=== PATIENT | male | born 1970 | race Caucasian/White ===

== ENCOUNTER 2025-06-18 09:09 | Outpatient (REF) | payer MEDICAID, SELFPAY ==
--- OUTSIDE RECORDS SUMMARY | 2025-06-18 09:58 | XMS_ITS | Clinical Summary ---
Author Organization [facility] Address [address] [place] [address] Care Team Providers Care Contract Driver Name Role Phone Ricco Saul MD Primary Care Provider [phone] Allergies No known active allergies Medications carbamide peroxide (Debrox) 6.5 % otic solutionIndicat ions:Excessive cerumen in left ear canal Administer 5-10 drops into affected ear(s) 2 times daily for 4 days. 30 mL 06/15/20 25 Active Problems Problem Noted Date Diagnosed Date Seasonal allergies 06/11/2025 Encounters Date Type Department Care Team Description 06/11/2025 2:00 PM EST Office Visit [facility] [address] [place] [address] Ricco Saul MD Seasonal allergies (Primary Dx); Dietary counseling; Exercise counseling; Class 1 obesity due to excess calories without serious comorbidity with body mass index (BMI) of 30.0 to 30.9 in adult; Snoring; Excessive cerumen in left ear canal 06/11/2025 Travel 06/04/2025 Patient Outreach [facility] [address] [place] [address] Anthony Chisholm MD Pre-visit Planning (SDOH screening negative and Tobacco screening negative) 06/04/2025 Travel 05/11/2025 Population Health Risk Score [facility] ([facility]) Department [address] [phone] Provider, Population Health Generic from Last 3 Months Family History Medical History Relation Name Comments Emphysema Father Hypertension Father Skin cancer Father smoker Father Hypothyroidism Mother Stroke Mother Relation Name Status Comments Father Mother Social History Tobacco Use Types Packs/Day Years Used Date Smoking Tobacco: Never Smokeless Tobacco: Never Tobacco Cessation:Counseling Given: Not Answered Depression Answer Date Recorded Patient Health Questionnaire-9 Score 1 06/11/2025 Patient Health Questionnaire-9 Score 1 06/11/2025 Last PHQ-9: Questionnaire Data Not on file 1 08/11/2024 Housing Stability Answer Date Recorded What is your housing situation today? I have leonardo rodriguez 06/04/[address] you li ve. Do you have problems with any of the following? None of the above 06/04/2025 Food Insecurity Answer Date Recorded Within the past 12 months, y ou worried that your food would run out before you got money to buy more: Never True 06/04/2025 Within the past 12 months,th e food you bought just didn't last and you didn't have enough money to get more: Never True Transportation Answer Date Recorded In the past 12 months, has l ack of transportation kept you from medical appts, meetings, work or from getting things needed for daily living? No 06/04/2025 Utilities Answer Date Recorded In the past 12 months, has t he electric, gas, oil or water company threatened to shut off services in your home? No 06/04/2025 Depression Answer Date Recorded Patient Health Questionnaire-2 Score 0 06/11/2025 Internet Access Answer Date Recorded Internet Access Q1 Yes 06/04/2025 Internet Access Q2 Not on file 06/04/2025 Sex and Gender Information Value Date Recorded Sex Assigned at Male 05/15/2025 1:48 PM EDT Legal Sex Male 2:10 AM EDT Gender Identity Male 06/11/2025 1:45 PM EST Sexual Orientation Straight 06/11/2025 1: 45 PM EST Last Filed Vital Signs Vital Sign Reading Time Taken Comments Blood Pressure 133/78 06/11/2025 2:01 PM EST Pulse 84 06/11/2025 2:01 PM EST Temperature - - Respiratory Rate 20 06/11/2025 2:01 PM EST Oxygen Saturation 98% 06/11/2025 2:01 PM EST Inhaled Oxygen Concentration - - Weight 98 kg (216 lb) 06/11/2025 2:01 PM EST Height 179 cm (5' 10.47 ) 06/11/2025 2:01 PM EST Body Mass Index 30.58 06/11/2025 2:01 PM EST Plan of Treatment Health Maintenance Due Date Last Done Comments CT Colonography 1970 Colonoscopy 1970 Colorectal Cancer Screening 1970 FIT DNA/Cologuard 1970 FIT 1970 FOBT 1970 HIV Screening 1970 Lipid Panel 1970 Sigmoidoscopy 1970 Hepatitis C Screening 02/14/1988 DTaP/Tdap/Td Vaccines (1 - Tdap) 1989 Hepatitis B Vaccines (1 of 3 - 19+ 3-dose series) 1989 Zoster Vaccines (1 of 2) 02/14/2020 Influenza Vaccine (#1) 2026 Postp oned from 04/09/2025 (Patient Refused) Disability Screening 06/04/2026 06/04/2025 SDOH Screening 06/04/2026 06/04/2025 Alcohol/Substance Use Screening 06/11/2026 06/11/2025 COVID-19 Vaccine (1 - 2023-2 5 season) 2026 Postponed from 04/09 (Patient Refused) Depression Screening 06/11/2026 06/11/2025, 06/11/2025 Pneumococcal Vaccine: 50+ Years (1 of 1 - PCV) 06/11/2026 Postponed from 03/2020 (Patient Refused) Tobacco Screening 06/11/2026 06/11/2025 RSV Patients and Patients Aged 60 years or older (1 - 1-dose 75+ series) 2045 HIB Vaccines Aged Out No longer eligi ble based on patient's age to complete this topic HPV Vaccines Aged Out No longer eligi ble based on patient's age to complete this topic Hepatitis A Vaccines Aged Out No long er eligible based on patient's age to complete this topic IPV Vaccines Aged Out No longer eligi ble based on patient's age to complete this topic Meningococcal B Vaccine Aged Out No l onger eligible based on patient's age to complete this topic Meningococcal Vaccine Aged Out No robin claus eligible based on patient's age to complete this topic RSV under 20 months Aged Out No longe r eligible based on patient's age to complete this topic Rotavirus Vaccines Aged Out No longer eligible based on patient's age to complete this topic Insurance [facility] C[facility] Advance Directives Documents on File Type Date Recorded 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
[2025-06-18 14:20] LABS: MANUAL DIFF FLAG NO
[2025-06-18 14:30] LABS: Hematocrit 46.8 % (42.0-52.0); Hemoglobin 15.4 g/dl (14.0-18.0); Imm Gran Abs Auto 0.07 X10*3/uL (0.00-0.03); Imm Gran Pct Auto 1.2 % (0.0-0.4); Lymphocytes Absolute Auto 1.7 X10*3/uL (1.2-4.9); Mean Corpuscular HGB Conc 32.9 g/dl (31.0-36.0); Mean Corpuscular Hemoglobin 28.5 pg (27.0-33.0); Mean Corpuscular Volume 86.5 fL (80.0-98.0); NRBC Abs Auto 0.000 X10*3/uL (0.0-0.012); NRBC Pct Auto 0.0 /100WBC (0.0-0.2); Platelet Count 229 X10*3/uL (160-400); Red Blood Count 5.41 X10*6/uL (4.60-5.80); White Blood Count 5.7 X10*3/uL (4.8-10.8)
[2025-06-18 16:51] LABS: Albumin Level 4.4 g/dL (3.5-5.0); Alkaline Phosphatase 67 U/L (39-117); Anion Gap 12 (12-20); Aspartate Amino Transferase 32 U/L (5-37); Blood Urea Nitrogen 14 mg/dL (9-16); Calcium 9.6 mg/dL (8.4-10.2); Carbon Dioxide 26 mmol/L (22-29); Chloride 106 mmol/L (96-108); Cholesterol 159 mg/dL (<200); Estimated Glomerular Filt Rate > 60; HDL Cholesterol 37 mg/dL (>40); Potassium 4.1 mmol/L (3.3-5.1); Sodium 140 mmol/L (135-145); Total Protein 7.2 g/dL (6.5-8.0); Triglycerides 103 mg/dL (<150)
[2025-06-18 16:57] LABS: Alanine Aminotransferase 32 U/L (0-40)
[2025-06-19 06:51] LABS: HBS Num1 0.19 mIU/mL (0-7.99); HBc Num1 0.05 S/CO (0.00-0.79); HBsAGNum1 0.43 S/CO (0.00-0.99); Hepatitis A Antibody IgM 0.34 Index (0-0.79); Hepatitis B Surface Antigen Negative (Negative); ~HepC Num1 0.05 S/CO (0.00-0.79); ~Hepatitis A Antibody IgM Nonreactive (Nonreactive); ~Hepatitis B Surface Antibody NONREACTIVE (Nonreactive); ~Hepatitis C Antibody Nonreactive (Nonreactive)
== END 2025-06-18 09:10 | disposition home or self-care (01) ==
LOC: HO.CHCLDS 09:09
PROVIDERS: Visit Provider Internal Medicine
DX: E66.811 Obesity, class 1 (principal); Z68.30 Body mass index [BMI] 30.0-30.9, adult
CPT/HCPCS: 36415; 80053; 80061; 84443; 85025; 86704; 86706; 86709; 86803; 87340